=== PATIENT | female | born 1945 | race Caucasian/White ===

== ENCOUNTER → 2020-09-22 | Outpatient (CLI) | payer MEDICARE ==
[~2020-09-22] MED LIST: ASPI-630 PO; FERR236T2 PO; GINK120T3 PO; GUAI-112 PO; LIPITOR80 MG PO; LISI10TA16 PO; MULT-245 PO; MV-M1TAB7 PO; SOY1TABL2 PO
--- NOTE | 2020-09-22 11:23 | RAD ---
INDICATION: Screening for osteopenia/osteoporosis. Postmenopausal evaluation. COMPARISON: None. TECHNIQUE: Bone densitometry was performed through the lumbar spine and proximal femur. IMPRESSION: Lumbar Spine: BMD: 0.92 T-Score: -2.2 Range: Osteopenic Proximal Femur: BMD: 0.58 T-Score: -3.0 Range: Osteoporotic World Health Organization Criteria for Bone Density: T-Score: > -1.0: Normal Range < -1.0 to -2.5: Osteopenic Range < -2.5: Osteoporotic Range Electronically signed by: Sukhi Donohue MD (09/22/2020 11:20 AM) [id number]
--- NOTE | 2020-09-22 15:10 | RAD ---
CT LOW DOSE LUNG SCREEN History: Screening. Smoking history Technique: Noncontrast CT of the chest was performed. Coronal and sagittal reconstructions were perfo rmed. Exposure: One or more of the following individualized dose reduction techniques were utilized for thi s examination: 1. Automated exposure control 2. Adjustment of the mA and/or kV according to patient size 3. Use of iterative reconstruction technique. Comparison: None Findings: Chest: Extensive atheromatous plaque within the aorta and branch vessels. Severe coronary artery calc ifications. No pathologic lymphadenopathy. Severe pulmonary emphysema. No consolidation or pleural effusion. No pneumothorax. Calcified mediasti nal lymph node, likely prior granulomatous disease. Right middle lobe cluster of nodules versus mucus plugging (series 3 image 34) largest component kyleigh ures 6 mm. 2 mm left lower lobe pulmonary nodule (series 2 image 81). 2 mm right lower lobe pulmonary nodule (image 55). Upper abdomen: The imaged upper abdomen is unremarkable. Bones: No pathologic osseous lesions. Impression: 1. Cluster of nodules within the right lower lobe with additional small nodules. Lung RADS 3. Recomm end 6 month follow-up low-dose CT. 2. Severe pulmonary emphysema. Electronically signed by: Duane Burr DO (09/22/2020 3:08 PM) [id number]
--- NOTE | 2020-10-01 22:32 | RAD ---
DATE: 09/22/2020 EXAM: DIGITAL SCREEN BILAT W/CAD HISTORY: Screening COMPARISON: 09/23/2017, 09/17/2016 This study was interpreted with the benefit of Computerized Aided Detection (CAD). Breast Density: HETERO The breast parenchyma is heterogenously dense, which could reduce sensitivity of mammography. Breast parenchyma level C. FINDINGS: No suspicious mass, calcifications, or architectural distortion. IMPRESSION: No evidence of malignancy. BI-RADS CATEGORY: 1 NEGATIVE RECOMMENDED FOLLOW-UP: 12M 12 MONTH FOLLOW-UP PQRS compliance statement: Patient information was entered into a reminder system with a target due date for the next mammogram. Mammography is a sensitive method for finding small breast cancers, but it does not detect them all and is not a substitute for careful clinical examination. A negative mammogram does not negate a clinically suspicious finding and should not result in delay in biopsying a clinically suspicious abnormality. "Our facility is accredited by the [employer] Mammography Program."
== END ==
LOC: MAMMO 10:04
PROVIDERS: ATTEND Family Medicine
DX: Z12.31 Encounter for screening mammogram for malignant neoplasm of breast (principal); Z12.2 Encounter for screening for malignant neoplasm of respiratory organs; M81.0 Age-related osteoporosis without current pathological fracture; M85.88 Other specified disorders of bone density and structure, other site; R91.8 Other nonspecific abnormal finding of lung field; J43.9 Emphysema, unspecified; M89.9 Disorder of bone, unspecified; Z87.891 Personal history of nicotine dependence
CPT/HCPCS: 71271; 77067; 77080

== ENCOUNTER → 2020-11-23 | Day surgery (SDC) | payer MEDICARE ==
[~2020-11-23] MED LIST changes: +ACETAMINOPHEN 500 MG TABLET PO PRN; +BALANCED SALT IRRIG SOLN NO.2 500 ML IO ONE; +BENZONATATE 100 MG CAPSULE. PO PRN; +BRIMONIDINE 0.2% OPHTH SOLUTION 5ML BOTTLE. OS ONE; +CEFUROXIME OPHTH 4 MG/0.4 ML SYRINGE. OS ONE; +CHONDROIT-SOD-HYALURONATE KIT. OS ONE; +IBUPROFEN 200 MG TABLET PO PRN; +LIDO/EPI IN BSS OPHTH 2.7 ML SYRINGE. OS ONE; +LIDOCAINE 2% JELLY 6ML IN APPLICATOR. ONE; +MIDAZOLAM HCL PF 2 MG/2 ML VIAL. ONE; +PHENYLEPHRINE 10% OPHTH SOLUTION 5ML BOTTLE. OS PRN; +POVIDONE-IODINE 5% OPHTH SOLUTION 30ML BOTTLE. ONE; +POVIDONE-IODINE 5% OPHTH SOLUTION 30ML BOTTLE. OS ONE; +POVIDONE-IODINE 5% OPHTH SOLUTION 30ML BOTTLE. OS PRN; +PROPARACAINE 0.5% OPHTH SOLUTION 15ML BOTTLE. OS ONE; +PROPARACAINE 0.5% OPHTH SOLUTION 15ML BOTTLE. OS PRN; +prednisoLONE ACETATE 1% OPHTH SUSPENSION 5ML BOTTLE. OS ONE
[2020-11-23] MEDS: TOBRAMYCIN 0.3% OPHTH SOLUTION 5ML BOTTLE. OS SCH ×2 (07:12→07:17)
[2020-11-23] MEDS: KETOROLAC TROMETHAMINE 0.5% OPHTH SOLUTION BOTTLE. OS SCH ×2 (07:12→07:17)
[2020-11-23] MEDS: PHENYLEPHRINE 2.5% OPHTH SOLUTION 2ML BOTTLE. OS SCH ×3 (07:12→07:20)
[2020-11-23] MEDS: TROPICAMIDE 1% OPHTH SOLUTION 15ML BOTTLE. OS SCH ×3 (07:12→07:20)
--- NOTE | 2020-11-23 09:02 | PDOC4 ---
SURGEON: Abimael Flaherty MD Date of Procedure: 11/23/20 PREOP Diagnosis Visually significant cataract: Left Eye OS POSTOP Diagnosis Same PROCEDURE: Phaco w/ posterior chamber IOL: Left Eye OS ANESTHESIA Deep forniceal periocular 2% Lidocaine jelly Caro/retro bulbar block with 2% Lidocaine with 0.5% Marcaine DESCRIPTION OF PROCEDURE The risks, benefits, and alternatives were discussed with the patient who elected to proceed. Informed consent was obtained in writing and placed in the chart After anesthetizing the eye topically, the patient was taken to the operating room, and the operative eye was prepped and draped in the usual sterile fashion for ocular surgery. A wire lid speculum was placed. A 1-mm clear corneal paracentesis incision was created with the side-port blade at a position three o'clock hours clockwise from the temporal cornea. Then, 1% non-preserved Lidocaine with epinephrine was injected into the anterior chamber followed by viscoelastic. Cotton-tipped applicators were used to stabilize the globe, and a 2.4 mm keratome was used to create a self-sealing incision in clear cornea at the temporal limbus. The Utrata forceps were used to create a continuous curvilinear capsulorrhexis. Balanced saline solution was injected via cannula beneath the capsulorrhexis edge to hydrodissect the lens nucleus and cortex from the lens capsule. The phacoemulsification handpiece and a chopping instrument were then used to remove the lens nucleus. The remaining epinuclear material and cortex were removed with the irrigation/aspiration handpiece. Visc oelastic was used to re-inflate the lens capsule, and the intraocular lens was injected directly into the capsular bag. The corneal wound edges were hydrated with balanced salt solution on a cannula and the irrigation/aspiration handpiece was used to extract the remaining viscoelastic. Cefuroxime 0.1mg/ml / Vigamox 0.5% was injected into the anterior chamber intracamerally. The wounds were inspected and found to be watertight at an appropriate intraocular pressure. Topical antibiotic drops were placed on the corneal surface. LRI: No If Yes, Number [] [place] [] Length [] degrees Depth [] microns Incision B[place]ide: 180 Toric Lens Bayside [] Patch/shield with Maxitrol/Tobradex/Erythromycin ointment: Yes No Co-managed patients/postop examination stable for co-management with referring doctor. EBL EBL: None SPECIMANS COLLECTED Specimens Collected: None ABIMAEL FLAHERTY MD Nov 23, 2020 09:02
[2020-11-23 09:13] VITALS: BP 100/56
== END | disposition home or self-care (01) ==
LOC: SURG 06:56
PROVIDERS: ATTEND Ophthalmology
DX: H25.12 Age-related nuclear cataract, left eye (principal); F41.9 Anxiety disorder, unspecified; F17.210 Nicotine dependence, cigarettes, uncomplicated; K21.9 Gastro-esophageal reflux disease without esophagitis; I73.9 Peripheral vascular disease, unspecified; E78.00 Pure hypercholesterolemia, unspecified; I10 Essential (primary) hypertension; J43.9 Emphysema, unspecified; Z79.899 Other long term (current) drug therapy; Z79.82 Long term (current) use of aspirin
CPT/HCPCS: 66984; J2250; V2632

== ENCOUNTER → 2021-09-06 | Outpatient (CLI) | payer MEDICARE ==
[2020-11-23 09:13] VITALS: BP 100/56
[~2021-09-06] MED LIST changes: -ACETAMINOPHEN 500 MG TABLET PO PRN; -BALANCED SALT IRRIG SOLN NO.2 500 ML IO ONE; -BENZONATATE 100 MG CAPSULE. PO PRN; -BRIMONIDINE 0.2% OPHTH SOLUTION 5ML BOTTLE. OS ONE; -CEFUROXIME OPHTH 4 MG/0.4 ML SYRINGE. OS ONE; -CHONDROIT-SOD-HYALURONATE KIT. OS ONE; -IBUPROFEN 200 MG TABLET PO PRN; -LIDO/EPI IN BSS OPHTH 2.7 ML SYRINGE. OS ONE; -LIDOCAINE 2% JELLY 6ML IN APPLICATOR. ONE; -MIDAZOLAM HCL PF 2 MG/2 ML VIAL. ONE; -PHENYLEPHRINE 10% OPHTH SOLUTION 5ML BOTTLE. OS PRN; -POVIDONE-IODINE 5% OPHTH SOLUTION 30ML BOTTLE. ONE; -POVIDONE-IODINE 5% OPHTH SOLUTION 30ML BOTTLE. OS ONE; -POVIDONE-IODINE 5% OPHTH SOLUTION 30ML BOTTLE. OS PRN; -PROPARACAINE 0.5% OPHTH SOLUTION 15ML BOTTLE. OS ONE; -PROPARACAINE 0.5% OPHTH SOLUTION 15ML BOTTLE. OS PRN; -prednisoLONE ACETATE 1% OPHTH SUSPENSION 5ML BOTTLE. OS ONE
--- NOTE | 2021-09-06 13:42 | RAD ---
EXAM: CT CHEST WITHOUT CONTRAST (LDCT LUNG CANCER SCREENING). HISTORY: Risk factors for pulmonary malignancy. Pulmonary nodule. TECHNIQUE: CT of the chest was performed without intravenous contrast using a low-dose lung screening protocol. Findings analysis is based on ACR Lung-RADS v1.1. *One or more of the following individual ized dose reduction techniques were utilized for this examination: 1. Automated exposure control. 2. Adjustment of the mA and/or kV according to patient size. 3. Use of iterative reconstruction technique. COMPARISON: 09/22/2020. FINDINGS: The heart is normal in size. There is aortic and aortic arch great vessel calcified atheros clerotic plaque. There is coronary artery calcification. There are a few calcified granulomas. There is increased size and density of a previously suspected cluster of nodular opacities within the superior segment of the right lower lobe. This lesion is spiculated and measures approximately 1.6 c m in maximum dimension. The largest solid lesion component is seen inferiorly measuring 9 mm. There i s a similar-appearing spiculated nodule within the right lower lobe measuring approximately 1.8 cm, a lso increased in size in density compared to the prior exam. There is a spiculated groundglass opacity with central lucency within the anterior right upper lobe m easuring 8 mm, slightly more conspicuous compared to the prior exam likely due to differences in tech nique. There is a 7 mm irregular nodular opacity within the right lung apex adjacent to pleural paren chymal scarring, also more conspicuous compared to the prior exam. There is emphysema. There is bronchial wall thickening likely due to bronchitis. There is biapical pr edominant pleural parenchymal scarring. There is additional focal suspected pleural parenchymal scarr ing within the posterior left upper lobe measuring 1.2 cm, stable in appearance. There is no acute fi nding involving the upper abdomen. There is no acute or suspicious osseous finding. IMPRESSION: 1. Spiculated nodular opacity with internal lucency within the superior segment of the right lower lo be measuring 1.6 cm. The largest solid lesion component measures 9 mm. This is increased compared to the prior exam. The differential includes infectious/inflammatory as well as neoplastic etiologies. T he largest solid lesion component may be too small to assess with PET. Therefore, short-term follow-u p with a CT in 3 months is recommended. 2. Multiple additional irregular spiculated nodular and groundglass opacities, some of which are more conspicuous compared to the prior exam likely due to differences in imaging technique. Attention at the time of follow-up is recommended. 3. Severe emphysema with pleural parenchymal scarring and bronchial wall thickening likely due to the sequela of bronchitis. Electronically signed by: Reanna Coronel MD (09/06/2021 1:39 PM) [id number]
== END ==
LOC: CT 12:57
PROVIDERS: ATTEND Specialist
DX: R91.1 Solitary pulmonary nodule (principal); J43.9 Emphysema, unspecified; J84.10 Pulmonary fibrosis, unspecified; J98.4 Other disorders of lung; I25.10 Atherosclerotic heart disease of native coronary artery without angina pectoris; F17.210 Nicotine dependence, cigarettes, uncomplicated
CPT/HCPCS: 71271

== ENCOUNTER → 2021-09-14 | Outpatient (CLI) | payer MEDICARE ==
[2020-11-23 09:13] VITALS: BP 100/56
[2021-09-15 20:56] LABS: CHOLESTEROL/HDL RATIO 1.8
== END ==
LOC: LAB 11:18
PROVIDERS: ATTEND Internal Medicine
DX: E78.2 Mixed hyperlipidemia (principal)
CPT/HCPCS: 80061